=== PATIENT | female | born 1975 | race Caucasian/White ===

== ENCOUNTER 2017-12-22 06:19 | Emergency (ER) | payer SELFPAY ==
--- NOTE | 2017-12-22 07:46 | ER Document Report ---
ED ENT - General Chief Complaint: Ear Pain Stated Complaint: EAR PROBLEM Time Seen by Provider: 12/22/17 06:59 Mode of Arrival: Ambulatory Information source: Patient Notes: Patient is a 42-year-old female who presents to the ER today for left ear "feeling of being muffled." Patient denies any pain to the ear, injury to the ear. She denies any runny nose, sneezing, coughing or other sick symptoms, fever or chills. Patient states she woke up like this this morning. She has seen no drainage from the ear nor she tried anything [id number]. - Related Data Allergies/Adverse Reactions: No Known Allergies Allergy (Unverified 12/22/17 06:22) Past Medical History - General Information source: Patient - Social History Smoking Status: Never Smoker Chew tobacco use (# tins/day): No Frequency of alcohol use: Rare Drug Abuse: None Family History: Reviewed & Not Pertinent Patient has suicidal ideation: No Patient has homicidal ideation: No - Past Medical History Cardiac Medical History: Reports: Hx Hypertension - former Renal/ Medical History: Denies: Hx Peritoneal Dialysis Past Surgical History: Reports: Hx Cholecystectomy Review of Systems - Review of Systems Constitutional: No symptoms reported EENT: See HPI Cardiovascular: No symptoms reported Respiratory: No symptoms reported Gastrointestinal: No symptoms reported Genitourinary: No symptoms reported Female Genitourinary: No symptoms reported Musculoskeletal: No symptoms reported Skin: No symptoms reported Hematologic/Lymphatic: No symptoms reported Neurological/Psychological: No symptoms reported Physical Exam - Vital signs Vitals: Temp Pulse Resp BP Pulse Ox 98.4 F 70 16 120/79 98 12/22/17 06:24 12/22/17 06:24 12/22/17 06:24 12/22/17 06:24 12/22/17 06:24 - Notes Notes: PHYSICAL EXAMINATION: GENERAL: Well-appearing and in no acute distress. HEAD: Atraumatic, normocephalic. EYES: Pupils equal round and reactive to light, extraocular movements intact, sclera anicteric, conjunctiva are normal. ENT: Left ear canal with wax completely obscuring TM, right ear canal without erythema or foreign body, right TM pearly palacios with good bony landmarks, nares patent, oropharynx clear without exudates. Moist mucous membranes. NECK: Normal range of motion, supple without lymphadenopathy LUNGS: CTAB and equal. No wheezes rales or rhonchi. HEART: Regular rate and rhythm without murmurs EXTREMITIES: Normal range of motion, no pitting edema. No cyanosis. NEUROLOGICAL: Cranial nerves grossly intact. Normal sensory/motor exams. PSYCH: Normal mood, normal affect. SKIN: Warm, Dry, normal turgor, no rashes or lesions noted Course - Re-evaluation Re-evalutation: 12/22/17 08:01 Left ear was irrigated successfully, on reexamination TM pearly [place] with good cone of light and bony landmarks, no wax in ear canal, no signs of infection, patient feels better. - Vital Signs Vital signs: Temp Pulse Resp BP Pulse Ox 98.4 F 70 16 120/79 98 12/22/17 06:24 12/22/17 06:24 12/22/17 06:24 12/22/17 06:24 12/22/17 06:24 Discharge - Discharge Clinical Impression: Impacted cerumen of left ear Condition: Stable Disposition: HOME, SELF-CARE Additional Instructions: Return immediately for any new or worsening symptoms. Follow up with primary care provider, call tomorrow to make followup appointment. In case of ear wax buildup again, you can use Debrox eardrops [id number].
[2017-12-22 08:20] VITALS: BP 110/75
== END 2017-12-22 08:16 | disposition home or self-care (01) ==
LOC: ER 06:19
DX: H61.22 Impacted cerumen, left ear (principal); I10 Essential (primary) hypertension
CPT/HCPCS: 99282

== ENCOUNTER 2018-01-10 19:51 | Emergency (ER) | payer MEDICAID ==
[2018-01-10 20:51] LABS: ABSOLUTE BASOPHILS # (AUTO) 0.1 10^3/uL (0.0-0.2); ABSOLUTE EOSINOPHILS # (AUTO) 0.2 10^3/uL (0.0-0.6); ABSOLUTE LYMPHOCYTES (AUTO) 3.7 10^3/uL (0.5-4.7); ABSOLUTE MONOCYTES (AUTO) 0.7 10^3/uL (0.1-1.4); ABSOLUTE NEUT (AUTO) 4.9 10^3/uL (1.7-8.2); BASOPHILS % (AUTO) 0.6 % (0-2); EOSINOPHILS % (AUTO) 1.7 % (0-6); HEMATOCRIT 40.8 % (36.0-47.0); LYMPHOCYTES % (AUTO) 38.9 % (13-45); MEAN CORPUSCULAR HEMOGLOBIN 32.3 pg (27.0-33.4); MEAN CORPUSCULAR HGB CONC 34.3 g/dL (32.0-36.0); MEAN CORPUSCULAR VOLUME 94 fl (80-97); MONOCYTES % (AUTO) 7.6 % (3-13); PLATELET COUNT 281 10^3/uL (150-450); RED BLOOD COUNT 4.34 10^6/uL (3.72-5.28); RED CELL DISTRIBUTION WIDTH 13.6 % (11.5-14.0); SEGMENTED NEUTROPHILS % (AUTO) 51.2 % (42-78); TOTAL CELLS COUNTED % (AUTO) 100 %; WHITE BLOOD COUNT 9.6 10^3/uL (4.0-10.5)
--- NOTE | 2018-01-10 20:58 | ER Document Report ---
ED General - General Chief Complaint: OB Problem (<20wks) Stated Complaint: ABDOMINAL PAIN Time Seen by Provider: 01/10/18 20:26 Notes: Patient is a 42-year-old at uncertain gestational age by LMP who presents with concerns of diffuse lower abdominal cramping and discomfort that started over the past 24 hours. She states that she has had a positive test at home and confirmed at the health department. She denies any associated vaginal bleeding or discharge. She describes the pain as a cramping, aching, throbbing pain to her lower abdomen. And nothing improves or worsens this pain. She is uncertain if she had similar pains during her previous many years ago. She has not established formal care for this . She denies any fever or constitutional symptoms. TRAVEL OUTSIDE OF THE [place] IN LAST 30 DAYS: No - Related Data Allergies/Adverse Reactions: No Known Allergies Allergy (Verified 01/10/18 19:52) Past Medical History - General Information source: Patient - Social History Smoking Status: Never Smoker Frequency of alcohol use: None Drug Abuse: None Lives with: Family Family History: Reviewed & Not Pertinent - Past Medical History Cardiac Medical History: Reports: Hx Hypertension - former Renal/ Medical History: Denies: Hx Peritoneal Dialysis Past Surgical History: Reports: Hx Cholecystectomy Review of Systems - Review of Systems Notes: Constitutional: Negative for fever. HENT: Negative for sore throat. Eyes: Negative for visual changes. Cardiovascular: Negative for chest pain. Respiratory: Negative for shortness of breath. Gastrointestinal: Positive for lower abdominal pain Genitourinary: Negative for dysuria. Musculoskeletal: Negative for back pain. Skin: Negative for rash. Neurological: Negative for headaches, weakness or numbness. 10 point ROS negative except as marked above and in HPI. Physical Exam - Vital signs Vitals: Temp Pulse Resp BP Pulse Ox 99.0 F 76 16 110/69 96 01/10/18 20:01 01/10/18 20:01 01/10/18 20:01 01/10/18 20:01 01/10/18 20:01 Interpretation: Normal Notes: PHYSICAL EXAMINATION: GENERAL: Well-appearing, well-nourished and in no acute distress. HEAD: Atraumatic, normocephalic. EYES: Pupils equal round and reactive to light, extraocular movements intact, sclera anicteric, conjunctiva are normal. ENT: nares patent, oropharynx clear without exudates. Moist mucous membranes. NECK: Normal range of motion, supple without lymphadenopathy LUNGS: Breath sounds clear to auscultation bilaterally and equal. No wheezes rales or rhonchi. HEART: Regular rate and rhythm without murmurs ABDOMEN: Soft, mild diffuse lower abdominal discomfort but no focal areas of tenderness, normoactive bowel sounds. No guarding, no rebound. No masses appreciated. EXTREMITIES: Normal range of motion, no pitting or edema. No cyanosis. NEUROLOGICAL: No focal neurological deficits. Moves all extremities spontaneously and on command. PSYCH: Normal mood, normal affect. SKIN: Warm, Dry, normal turgor, no rashes or lesions noted. Course - Re-evaluation Re-evalutation: 01/10/18 20:58 Patient is currently and presenting with lower abdominal pain. No vaginal bleeding or discharge. Formal ultrasound shows a viable intrauterine , appropriate cardiac activity and active movement. Patient denies any dysuria and urinalysis is not consistent with an acute urinary tract infection. The patient does not have any focal right lower quadrant tenderness, rebound or guarding to suggest acute appendicitis. No right upper quadrant tenderness to suggest cholestasis of or an acute cholecystitis. Patient has tolerated oral intake here in the emergency department without difficulty. Vitals are within normal limits. At this time will discharge with return precautions and follow-up recommendations. Verbal discharge instructions given a the bedside and opportunity for questions given. Medication warnings reviewed. Patient is in agreement with this plan and has verbalized understanding of return precautions and the need for primary care follow-up in the next 24-72 hours. - Vital Signs Vital signs: Temp Pulse Resp BP Pulse Ox 99.0 F 76 16 110/69 96 01/10/18 20:01 01/10/18 20:01 01/10/18 20:01 01/10/18 20:01 01/10/18 20:01 - Laboratory Result Diagrams: 01/10/18 20:30 01/10/18 20:30 Laboratory results interpreted by me: 01/10/18 01/10/18 01/10/18 20:30 20:30 20:30 Albumin 3.4 L Beta HCG, Quant 12917.00 H Ur Leukocyte Esterase TRACE H - Diagnostic Test Radiology reviewed: Reports reviewed Discharge - Discharge Clinical Impression: related abdominal pain of lower quadrant, antepartum Condition: Good Disposition: HOME, SELF-CARE Additional Instructions: You were seen for abdominal pain during . Your ultrasound and labs are normal today. The exact cause your pain is uncertain but is likely related to your developing baby. Please follow-up with your TECHNICAL RESEARCH SCIENTIST in the next 24-48 hours. Return to the emergency department immediately if you have worsening of your pain, have persistent vomiting, develop a fever of greater than 100.4F, begin to have vaginal bleeding, or any other symptoms that are worrisome to you. Referrals: CONY BECK MD [Primary Care Provider] - Follow up as needed
[2018-01-10 21:11] LABS: ALANINE AMINOTRANSFERASE 30 U/L (9-52); ALBUMIN 3.4 g/dL (3.5-5.0); ALKALINE PHOSPHATASE 46 U/L (38-126); ANION GAP 10 (5-19); APPEARANCE,URINE SLIGHTLY-CLOUDY; ASPARTATE AMINO TRANSFERASE 20 U/L (14-36); BILIRUBIN,DIRECT 0.2 mg/dL (0.0-0.4); BILIRUBIN,TOTAL 0.2 mg/dL (0.2-1.3); BILIRUBIN,URINE NEGATIVE (NEGATIVE); BLOOD UREA NITROGEN 17 mg/dL (7-20); CALCIUM 9.3 mg/dL (8.4-10.2); CARBON DIOXIDE 27 mmol/L (22-30); CHLORIDE 105 mmol/L (98-107); COLOR,URINE YELLOW; GLUCOSE 101 mg/dL (75-110); GLUCOSE, URINE NEGATIVE (NEGATIVE); KETONES,URINE NEGATIVE (NEGATIVE); LEUKOCYTE ESTERASE,URINE TRACE (NEGATIVE); NITRITE,URINE NEGATIVE (NEGATIVE); POTASSIUM 4.5 mmol/L (3.6-5.0); PROTEIN,URINE NEGATIVE (NEGATIVE); SODIUM 141.5 mmol/L (137-145); TOTAL PROTEIN 6.8 g/dL (6.3-8.2); URINE SPECIFIC GRAVITY 1.021; UROBILINOGEN,URINE NEGATIVE mg/dL (<2.0)
--- NOTE | 2018-01-10 21:43 | RADIOLOGY REPORT (SQ) ---
EXAM DESCRIPTION: U/S OB TRANSVAGINAL W/O DOP COMPLETED DATE/TIME: 01/10/2018 9:31 pm REASON FOR STUDY: lower abdominal pain, preg COMPARISON: None. TECHNIQUE: Transvaginal static and realtime grayscale images acquired of the pelvis. Additional fatmata cted spectral and color Doppler images recorded. All images stored on PACs. bHCG: Pending. CLINICAL DATES: 15 week 5 day. LIMITATIONS: None. FINDINGS: FETUS: Living intrauterine . ULTRASOUND EGA: 7 week 5 day. ULTRASOUND ARUN: 08/24/2018. CRL: 1.43 cm. FHR: 169 beats per minute. SUBCHORIONIC BLEED: No. SIZE OF BLEED: Not applicable. UTERUS: 2.3 cm fibroid. CERVICAL LENGTH: 2.4 cm. Closed. RIGHT ADNEXA: Ovary not identified. No adnexal free fluid. No adnexal masses. LEFT ADNEXA: Ovary not identified. No adnexal free fluid. No adnexal masses. FREE FLUID: None. OTHER: No other significant finding. IMPRESSION: LIVING INTRAUTERINE . EGA 7 WEEK 5 DAY. Trimester of : First - 0 to 13 weeks. TECHNICAL DOCUMENTATION: JOB ID: [id number] [employer]- All Rights Reserved rev-12/31 Reading location - IP/workstation name: [email or web address]
[2018-01-10 23:22] VITALS: BP 122/80
== END 2018-01-10 23:16 | disposition home or self-care (01) ==
LOC: ER 19:51
DX: O26.891 Other specified pregnancy related conditions, first trimester (principal); R10.30 Lower abdominal pain, unspecified; O16.1 Unspecified maternal hypertension, first trimester; Z3A.01 Less than 8 weeks gestation of pregnancy
CPT/HCPCS: 36415; 76817; 80053; 81001; 84702; 85025; 99284

== ENCOUNTER 2018-06-17 19:50 | Outpatient (CLI) | payer MEDICAID ==
[2018-06-17 20:23] LABS: APPEARANCE,URINE CLOUDY; BILIRUBIN,URINE NEGATIVE (NEGATIVE); COLOR,URINE YELLOW; GLUCOSE, URINE NEGATIVE (NEGATIVE); KETONES,URINE NEGATIVE (NEGATIVE); LEUKOCYTE ESTERASE,URINE LARGE (NEGATIVE); NITRITE,URINE NEGATIVE (NEGATIVE); PROTEIN,URINE NEGATIVE (NEGATIVE); URINE SPECIFIC GRAVITY 1.017; UROBILINOGEN,URINE NEGATIVE mg/dL (<2.0)
[2018-06-17 20:37] LABS: URINE AMPHETAMINES SCREEN NEGATIVE; URINE BARBITURATES SCREEN NEGATIVE; URINE BENZODIAZEPINES SCREEN NEGATIVE; URINE COCAINE SCREEN NEGATIVE; URINE MARIJUANA (THC) SCREEN NEGATIVE; URINE METHADONE SCREEN NEGATIVE; URINE PHENCYCLIDINE SCREEN NEGATIVE
[2018-06-17] MEDS ORDERED: RINGERS SOLUTION,LACTATED 1,000 ML IV PRN (20:55)
[2018-06-17] MEDS ORDERED: CEFAZOLIN 1 GM/D5W RTU 1 GM/50 ML RTUPB IV ONE ×2 (20:57→21:06)
== END 2018-06-17 22:55 | disposition home or self-care (01) ==
LOC: LC 19:50
PROVIDERS: ATTEND Obstetrics & Gynecology
PROC: 4A1HXCZ Monitoring of Products of Conception, Cardiac Rate, External Approach (ICD-10-PCS; principal; 2018-06-17)
DX: O23.43 Unspecified infection of urinary tract in pregnancy, third trimester (principal); O09.523 Supervision of elderly multigravida, third trimester; Z3A.30 30 weeks gestation of pregnancy
CPT/HCPCS: 59899; 87086; 81001; 80307; J0690

== ENCOUNTER 2018-07-14 16:04 | Outpatient (CLI) | payer MEDICAID ==
--- NOTE | 2018-07-14 16:51 | Non Stress Test Report ---
Non Stress Test Datetime Report Generated by CPN: 07/14/2018 16:50 DEMOGRAPHIC Test Number: 1 EGA NST: 34.1 EGA NST: 30.2 INDICATION Indication for Study: Ordered by Provider; Other Indication for Study: Ordered by Provider Indication for Study (NST) Other: AMA VITAL SIGNS Temperature - NST: 97.9 Temperature - NST: 99.3 Pulse - NST: 99 Pulse - NST: 98 RESP - NST: 18 RESP - NST: 16 NBPSYS NST: 105 NBPSYS NST: 130 NBPDIA NST: 65 NBPDIA NST: 66 MONITORING Monitor Explained: Monitor Explained; Test Explained; Other Monitor Explained: Monitor Explained; Test Explained; Patient Verbalized Understanding Time on Monitor: 07/14/2018 16:17 Time on Monitor: 06/17/2018 20:49 Time off Monitor: 07/14/2018 16:44 Time off Monitor: 06/17/2018 22:10 NST Duration: 27 NST Duration: 81 NST INTERVENTIONS NST Interventions: None NST Interventions: PO Hydration; IV Fluids Physician Notified NST: A Soler CNM BABY A: [id number] BABY A Movement : Present Movement : Present Contraction Frequency : denies Contraction Frequency : irritability FHR Baseline : 140 FHR Baseline : 145 Accelerations : 15X15 Accelerations : 15X15 Decelerations : None Decelerations : None Variability : Moderate 6-25bpm Variability : Moderate 6-25bpm NST Review: Meets Criteria for Reactive NST NST Review and Verified By : YAYO PoeT Results: Reactive NST Results: Reactive NST REPORT Report Trigger: Send Report
== END 2018-07-14 16:56 | disposition home or self-care (01) ==
LOC: LC 16:04
PROVIDERS: ATTEND Obstetrics & Gynecology
PROC: 4A1HXCZ Monitoring of Products of Conception, Cardiac Rate, External Approach (ICD-10-PCS; principal; 2018-07-14)
DX: Z34.93 Encounter for supervision of normal pregnancy, unspecified, third trimester (principal)
CPT/HCPCS: 59025

== ENCOUNTER 2018-07-18 10:18 | Outpatient (CLI) | payer MEDICAID ==
--- NOTE | 2018-07-18 11:13 | Non Stress Test Report ---
Non Stress Test Datetime Report Generated by CPN: 07/18/2018 11:13 DEMOGRAPHIC EGA NST: 34.5 INDICATION Indication for Study: Ordered by Provider; Other Indication for Study (NST) Other: AMA VITAL SIGNS Temperature - NST: 98.3 Pulse - NST: 100 RESP - NST: 16 NBPSYS NST: 114 NBPDIA NST: 72 MONITORING Monitor Explained: Monitor Explained; Test Explained; Patient Verbalized Understanding Time on Monitor: 07/18/2018 10:37 Time off Monitor: 07/18/2018 11:02 NST Duration: 25 NST INTERVENTIONS NST Interventions: PO Hydration; Reposition Patient Physician Notified NST: J.Ledesma, CNM BABY A: [id number] BABY A Movement : Present Contraction Frequency : 0 FHR Baseline : 140 Accelerations : 15X15 Decelerations : None Variability : Moderate 6-25bpm NST Review: Meets Criteria for Reactive NST NST Review and Verified By : SOILA KINNEY RN NST Results: Reactive NST REPORT Report Trigger: Send Report
== END 2018-07-18 11:04 | disposition home or self-care (01) ==
LOC: LC 10:18
PROVIDERS: ATTEND Obstetrics & Gynecology
PROC: 4A1HXCZ Monitoring of Products of Conception, Cardiac Rate, External Approach (ICD-10-PCS; principal; 2018-07-18)
DX: O09.523 Supervision of elderly multigravida, third trimester (principal); Z3A.34 34 weeks gestation of pregnancy
CPT/HCPCS: 59025

== ENCOUNTER 2018-08-08 08:13 | Outpatient (CLI) | payer MEDICAID ==
--- NOTE | 2018-08-08 09:00 | Non Stress Test Report ---
Non Stress Test Datetime Report Generated by CPN: 08/08/2018 09:00 DEMOGRAPHIC EGA NST: 37.5 INDICATION Indication for Study: Ordered by Provider MONITORING Monitor Explained: Monitor Explained; Test Explained Time on Monitor: 08/08/2018 08:24 Time off Monitor: 08/08/2018 08:49 NST Duration: 25 NST INTERVENTIONS NST Interventions: PO Hydration; Reposition Patient Physician Notified NST: Keith Nuñez CNM BABY A: [id number] BABY A Movement : Present Contraction Frequency : none FHR Baseline : 150 Accelerations : 15X15 Decelerations : None Variability : Moderate 6-25bpm NST Review: Meets Criteria for Reactive NST NST Review and Verified By : YAYO Pennington Results: Reactive NST REPORT Report Trigger: Send Report
== END 2018-08-08 08:54 | disposition home or self-care (01) ==
LOC: LC 08:13
PROVIDERS: ATTEND Obstetrics & Gynecology
PROC: 4A1HXCZ Monitoring of Products of Conception, Cardiac Rate, External Approach (ICD-10-PCS; principal; 2018-08-08)
DX: Z34.93 Encounter for supervision of normal pregnancy, unspecified, third trimester (principal)
CPT/HCPCS: 59025

== ENCOUNTER 2018-08-17 19:08 | Inpatient (IN) | payer MEDICAID ==
[2018-08-17 19:37] LABS: APPEARANCE,URINE CLOUDY; BILIRUBIN,URINE NEGATIVE (NEGATIVE); COLOR,URINE AMBER; GLUCOSE, URINE NEGATIVE (NEGATIVE); KETONES,URINE NEGATIVE (NEGATIVE); LEUKOCYTE ESTERASE,URINE MODERATE (NEGATIVE); NITRITE,URINE NEGATIVE (NEGATIVE); PROTEIN,URINE 30 mg/dL (NEGATIVE); URINE SPECIFIC GRAVITY 1.031
[2018-08-17 19:51] LABS: URINE AMPHETAMINES SCREEN NEGATIVE; URINE BARBITURATES SCREEN NEGATIVE; URINE BENZODIAZEPINES SCREEN NEGATIVE; URINE COCAINE SCREEN NEGATIVE; URINE MARIJUANA (THC) SCREEN NEGATIVE; URINE METHADONE SCREEN NEGATIVE; URINE PHENCYCLIDINE SCREEN NEGATIVE
[2018-08-17] MEDS ORDERED: ACETAMINOPHEN 325 MG TABLET PO PRN (22:25)
[2018-08-17] MEDS ORDERED: ZOLPIDEM TARTRATE 5 MG TABLET PO PRN (22:25)
[2018-08-17] MEDS ORDERED: MAG HYDROX/AL HYDROX/SIMETH SUSP 30 ML UDCUP PO PRN (22:25)
[2018-08-17] MEDS ORDERED: DINOPROSTONE 10 MG VAGINAL INSERT.SR PV ONE (22:25)
[2018-08-17] MEDS ORDERED: RINGERS SOLUTION,LACTATED 300 ML IV ONE (22:25)
[2018-08-17] MEDS ORDERED: OXYTOCIN/NORMAL SALINE 20 UNIT/1,000 ML RTUINJ IV PRN (22:25)
[2018-08-17] MEDS ORDERED: MISOPROSTOL 0.2 MG TABLET ONE (22:27)
[2018-08-17] MEDS ORDERED: LIDOCAINE 1% INJ-PF (10 MG/ML) 30 ML SDV ONE (22:27)
[2018-08-17] MEDS ORDERED: OXYTOCIN 10 UNIT/ML VIAL ONE (22:27)
[2018-08-17] MEDS ORDERED: OXYTOCIN/NORMAL SALINE 20 UNIT/1,000 ML RTUINJ ONE (22:27)
[2018-08-17] MEDS ORDERED: DINOPROSTONE 10 MG VAGINAL INSERT.SR ONE (22:27)
[2018-08-17] MEDS: RINGERS SOLUTION,LACTATED 1,000 ML IV PRN (22:42)
--- NOTE | 2018-08-17 22:49 | RADIOLOGY REPORT (SQ) ---
EXAM DESCRIPTION: US LIMITED COMPLETED DATE/TME: 08/17/2018 00:00 CLINICAL HISTORY: 42 years Female, position EGA 39.1 Comparison: None. TECHNIQUE/LIMITATION: Targeted OB sonogram for requested parameters only. FINDINGS: Cardiac activity: 126-bpm. KEMAR: 20.1-cm Placenta: Posterior. No evidence of abruption. No placenta previa. Presentation: Vertex IMPRESSION: Targeted OB sonogram for requested parameters
[2018-08-17 23:31] LABS: ABSOLUTE BASOPHILS # (AUTO) 0.1 10^3/uL (0.0-0.2); ABSOLUTE LYMPHOCYTES (AUTO) 2.7 10^3/uL (0.5-4.7); ABSOLUTE MONOCYTES (AUTO) 0.7 10^3/uL (0.1-1.4); ABSOLUTE NEUT (AUTO) 6.3 10^3/uL (1.7-8.2); BASOPHILS % (AUTO) 0.6 % (0-2); EOSINOPHILS % (AUTO) 0.4 % (0-6); HEMOGLOBIN 11.8 g/dL (12.0-15.5); LYMPHOCYTES % (AUTO) 27.4 % (13-45); MEAN CORPUSCULAR HEMOGLOBIN 33.4 pg (27.0-33.4); MEAN CORPUSCULAR HGB CONC 34.9 g/dL (32.0-36.0); MEAN CORPUSCULAR VOLUME 96 fl (80-97); MONOCYTES % (AUTO) 6.9 % (3-13); PLATELET COUNT 247 10^3/uL (150-450); RED BLOOD COUNT 3.54 10^6/uL (3.72-5.28); RED CELL DISTRIBUTION WIDTH 13.9 % (11.5-14.0); SEGMENTED NEUTROPHILS % (AUTO) 64.7 % (42-78); TOTAL CELLS COUNTED % (AUTO) 100 %; WHITE BLOOD COUNT 9.7 10^3/uL (4.0-10.5)
[2018-08-18] MEDS: RINGERS SOLUTION,LACTATED 1,000 ML IV PRN ×5 (01:46→22:00)
[2018-08-18] MEDS ORDERED: MISOPROSTOL 0.1 MG TABLET PV ONE (10:57)
[2018-08-18] MEDS ORDERED: MISOPROSTOL 0.1 MG TABLET PO ONE (10:57)
--- NOTE | 2018-08-18 12:00 | Admission Physical ---
Datetime Report Generated by CPN: 08/18/2018 12:00 CURRENT ADMISSION Chief Complaint: Scheduled Induction of Labor Indication for Induction: Other Indication for Induction- Other: AMA Admit Impression : Induction of Labor Admit Plan: Admit to Unit; Initiate Labor Induction Protocol ALLERGIES Medication Allergies: No Medication Allergies: No Known Allergies (08/08/2018) Latex: No Latex Allergies Food Allergies: None Environmental Allergies: Seasonal OBSTETRICAL HISTORY EDC: 08/24/2018 00:00 : 2 Para: 1 Term: 0 : 1 SAB: 0 IAB: 0 Ectopic: 0 Livin Cesareans: 0 VBACs: 0 Multiple Births: 0 Gestational Diabetes: No Rh Sensitization: No Incompetent Cervix: No DARIAN: No Infertility: Yes ART Treatment: No Uterine Anomaly: No IUGR: No Hx Previous C/S: No Macrosomia: No Hx Loss/Stillborn: No PIH: Yes Hx : No Placenta Previa/Abruption: No Depression/PP Depression: No PTL/PROM: Yes Post Hemorrhage: No (Annotations: Data stored by CPN on behalf of user) Current Procedures: Ultrasound Obstetrical History Comments: g1, , female, 34 weeks gestation, 6lb 3 oz, delivery SEE RECORDS Alcohol: No Marijuana : No Cocaine: No Other Illicit Drugs: No Cigarettes: Former Smoker. 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 Surgery: No Heart Disease: No Hosp/Surgery: Yes Autoimmune Disorder: No Anesthetic Complications: No Kidney Disease: Yes Abnormal Pap Smear: No Neuro/Epilepsy: No Psychiatric Disorders: No Other Medical Diseases: Yes Hepatitis/Liver Disease: No Significant Family History: Yes Varicosities/Phlebitis: Yes Trauma/Violence : No Thyroid Dysfunction: No Medical History Comments: obesity BMI 48.83 (lost 80lbs over the last year with diet and exercise), history of PreE, ear drum repair in left ear, gall bladder removed, childbirth x 1 INFECTIOUS HISTORY Gonorrhea: No Genital Herpes: No Chlamydia: No Tuberculosis: No Syphilis: No Hepatitis: No HIV/AIDS Exposure: No Rash or Viral Illness: No HPV: No PHYSICAL EXAM General: Normal HEENT: Normal Neurologic: Normal Thyroid: Deferred Heart: Normal Lungs: Normal Breast: Deferred Back: Normal Abdomen: Normal Genitourinary Exam: Deferred Extremities: Normal DTRs: Normal Pelvic Type: Adequate Physical Exam Comments: Gravid Vital Signs: Reviewed; Within Normal Limits MEMBRANES Membranes: Intact FETUS A EGA: 39.1 Monitoring: External US FHR- Baseline: 145 Variability: Moderate 6-25bpm Accelerations: 15X15 FHR Category: Category I Presentation: Vertex Admit Comment: Proven for 6lbs 3oz Obesity- initial BMI--48.83 Hx Pre E Unstable lie-sono on admit-vertex Positive GBS test-antibx with labor Cervidil ripening on admit Proven for 6lbs 3oz PLANS FOR LABOR AND DELIVERY Labor and Delivery: None Pain Management: None Feeding Preference: Breast Benefit of Breast Feed Discussed: Yes Circumcision: No INFORMED CONSENT Assignment: Elizabeth Khan MD Signature: with User ID: [email or web address] : with User ID: [email or web address] : I personally evaluated and examined the patient in conjunction with the MLP and agree with the assessment, treatment plan and disposition.
[2018-08-18] MEDS ORDERED: MISOPROSTOL 0.1 MG TABLET ONE (12:13)
[2018-08-18] MEDS ORDERED: CEFAZOLIN INJ 1 GM VIAL ONE ×3 (19:12→19:13)
[2018-08-18] MEDS ORDERED: CITRIC ACID/SODIUM CITRATE ORAL SOLN 15 ML UDCUP ONE ×2 (19:14→19:27)
[2018-08-18] MEDS ORDERED: EPHEDRINE SULFATE INJ 50 MG/1 ML AMPULE ONE ×3 (19:24→19:38)
[2018-08-18] MEDS ORDERED: BUPIVACAINE HCL 0.25 % INJ/PF (2.5 MG/1 ML) 30 ML VIAL ONE (19:25)
[2018-08-18] MEDS ORDERED: FENTANYL/BUPIVACAINE/NS/PF 0 MCG/0 ML RTUINJ EPI ONE (19:25)
[2018-08-18] MEDS ORDERED: BUPIVACAINE HCL 0.5 % INJ/PF 30 ML SDV ONE ×2 (19:25→19:28)
[2018-08-18] MEDS ORDERED: GLYCOPYRROLATE INJ 0.4 MG/2 ML VIAL ONE (19:27)
[2018-08-18] MEDS ORDERED: FENTANYL CITRATE INJ/PF 100 MCG/2 ML AMPUL ONE ×2 (19:27→19:37)
[2018-08-18] MEDS ORDERED: LIDOCAINE 2% INJ-PF (20 MG/ML) 10 ML AMPUL ONE (19:27)
[2018-08-18] MEDS ORDERED: KETOROLAC TROMETHAMINE INJ/PF 30 MG/1 ML SDV ONE (19:37)
[2018-08-18] MEDS ORDERED: OXYTOCIN 10 UNIT/ML VIAL ONE (19:37)
[2018-08-18] MEDS ORDERED: ACETAMINOPHEN 0 MG/0 ML RTUPB IV ONE (19:38)
[2018-08-18] MEDS ORDERED: ONDANSETRON HCL INJ/PF 4 MG/2 ML SDV ONE (19:38)
[2018-08-18] MEDS ORDERED: OXYTOCIN/NORMAL SALINE 0 UNIT/0 ML RTUINJ ONE (19:38)
[2018-08-18] MEDS ORDERED: MIDAZOLAM 2 MG/2 ML INJ ONE (19:38)
[2018-08-18] MEDS ORDERED: FENTANYL/BUPIVACAINE/NS/PF 300 MCG/150 ML RTUINJ EPI ONE (20:05)
--- NOTE | 2018-08-18 21:02 | L&D Progress Notes ---
PROGRESS NOTES Datetime Report Generated by CPN: 08/18/2018 21:02 PROGRESS NOTE Impression: Reassuring Heart Rate Procedures: Sterile Vag Exam Plan: Continue Present Management; Induction; Cervical Ripening Informed Consent Obtained: Vaginal Delivery; Induction of Labor; Risks, Benefits and Alternatives Discussed Comment: CNM notified MD that cvx was not reachable and that felt was still vertex. Upon my arrival to evaluate. US revealed baby to be transverse back down to maternal right (head on maternal right). Reviewed r/b/a to ECV versus Primary section. She desires primary section for tranverse presentation. Dr. Sargent in to place epidural. I rescanned the presentation and now baby is vertex. Cvx 2/50/-3/anterior. Offered proceeding with IOL with binder in place versus proeceeding to section for unstable lie. She desires YANI and IOL. Cooks cather placed and will begin pitocin when contractions from cytotec decrease. LAST VAGINAL EXAM-NURSING Dilitation: 2.0 Dilitation: cl Dilitation: 3.0 Dilitation: 3.0 Dilitation: 1.0 Dilitation: closed Effacement: 50 Effacement: th Effacement: 60 Effacement: 60 Effacement: 50 Effacement: thick Station: high Station: hi Station: -3 Station: -3 Station: -2 Station: high Contractions: RN at bedside adjusting toco. Contractions: No tachysystole noted, denises pain. Contractions: Denied pain Contractions: Denies pain. Contractions: Pt states she is not feeling contractions Contractions: irritability MEMBRANES Membranes: Intact FETUS A : 39.1 Presentation: Vertex SIGNATURE SIGNATURE: [id number];[id number];[id number] SIGNATURE: [id number];[id number] SIGNATURE: [id number] SIGNATURE: [id number] SIGNATURE: [id number] Signature: with User ID: [email or web address] : I personally evaluated and examined the patient in conjunction with the MLP and agree with the assessment, treatment plan and disposition.
[2018-08-18] MEDS ORDERED: PENICILLIN G-K 5 MILLION UNIT VIAL ONE (21:30)
[2018-08-19] MEDS ORDERED: PENICILLIN G-K 5 MILLION UNIT VIAL ONE ×5 (00:55→17:26)
[2018-08-19] MEDS ORDERED: LIDOCAINE 2%/EPINEPHRINE INJ 20 ML VIAL ONE (08:02)
[2018-08-19] MEDS ORDERED: SODIUM BICARBONATE 8.4% INJ 50 MEQ/50 ML DISP.SYRIN ONE (08:02)
[2018-08-19] MEDS ORDERED: FENTANYL/BUPIVACAINE/NS/PF 300 MCG/150 ML RTUINJ EPI ONE (08:41)
--- NOTE | 2018-08-19 08:46 | L&D Progress Notes ---
PROGRESS NOTES Datetime Report Generated by CPN: 08/19/2018 08:46 PROGRESS NOTE Impression: Reassuring Heart Rate Procedures: Scalp Electrode; Sterile Vag Exam Plan: Continue Present Management; Cervical Ripening; Anticipate Vaginal Delivery Informed Consent Obtained: Vaginal Delivery Vital Signs : Reviewed; Within Normal Limits Comment: sono = vtx, binder on, /vtx/-3. spoke with Dr[address] Khan, suggested AROM with FSE, FSE applied, clear fluid, head down to -1, + bloody show, BS 140 with variables, uc's q 2-3 x 60 sec, will monitor closely, pt is open to C/S if needed, family at BS VAGINAL EXAM Dilitation: 4.0 Dilitation: 4.0 Dilitation: 3.0 Effacement: 60 Effacement: 50 Effacement: 50 Station: Hi Station: high Station: high FETUS A Monitoring: External US FETUS C SIGNATURE: [id number];14,[id number];10,[id number] Assignment: Isaiah Bradshaw MD Signature: with User ID: [email or web address] : with User ID: Aury
[2018-08-19] MEDS ORDERED: NALBUPHINE HCL INJ 10 MG/1 ML AMPULE INJ ONE (11:23)
[2018-08-19] MEDS ORDERED: PROMETHAZINE HCL INJ 25 MG/1 ML VIAL IV ONE (11:23)
[2018-08-19] MEDS ORDERED: PROMETHAZINE HCL INJ 25 MG/1 ML VIAL ONE (11:34)
[2018-08-19] MEDS ORDERED: NALBUPHINE HCL INJ 10 MG/1 ML AMPULE ONE (11:35)
[2018-08-19] MEDS: RINGERS SOLUTION,LACTATED 1,000 ML IV PRN (14:43)
--- NOTE | 2018-08-19 14:55 | L&D Progress Notes ---
PROGRESS NOTES Datetime Report Generated by CPN: 08/19/2018 14:55 PROGRESS NOTE Impression: Reassuring Heart Rate Procedures: Sterile Vag Exam Plan: Induction; Anticipate Vaginal Delivery Vital Signs : Reviewed; Within Normal Limits Comment: VE /vtx/-1, irreg uc's, Cat 1 strip, variables VAGINAL EXAM Dilitation: 7.0 Dilitation: 5.0 Effacement: 90 Effacement: 60 Station: -2 Station: -2 Contractions: RN at bedside troubleshooting [place]. FETUS C SIGNATURE: [id number];14,[id number];13,[id number] Assignment: Isaiah Bradshaw MD Signature: with User ID: [email or web address] : with User ID: Aury
--- NOTE | 2018-08-19 16:48 | L&D Progress Notes ---
PROGRESS NOTES Datetime Report Generated by CPN: 08/19/2018 16:48 PROGRESS NOTE Comment: pt pushing involuntary, ant lip reduced, started pushing, asynclitic, ant lip, stop pushing, position on left side, restart pushing when ant lip resolved, variables with uc's, mod variability VAGINAL EXAM Dilitation: 9.5 Effacement: 100 Station: 0 FETUS C SIGNATURE: [id number];[id number];10,[id number] Assignment: Isaiah Bradshaw MD Signature: with User ID: Aury : with User ID: Aury
[2018-08-19] MEDS ORDERED: ACETAMINOPHEN 325 MG TABLET ONE (17:41)
[2018-08-19] MEDS ORDERED: ACETAMINOPHEN 325 MG TABLET PO ONE (18:00)
[2018-08-19] MEDS ORDERED: BENZOCAINE/MENTHOL AEROSOL SPRAY 56 ML TOP PRN (19:09)
[2018-08-19] MEDS ORDERED: ACETAMINOPHEN 650 MG SUPP.RECT PR PRN (19:09)
[2018-08-19] MEDS ORDERED: ACETAMINOPHEN WITH CODEINE #3 TABLET PO PRN (19:09)
[2018-08-19] MEDS ORDERED: PSEUDOEPHEDRINE HCL 30 MG TABLET PO PRN (19:09)
[2018-08-19] MEDS ORDERED: GLYCERIN/WITCH HAZEL LEAF 1 EACH MED..PAD TP PRN (19:09)
[2018-08-19] MEDS ORDERED: MAGNESIUM HYDROXIDE SUSP 30 ML UDCUP PO PRN (19:09)
[2018-08-19] MEDS ORDERED: PROMETHAZINE HCL 25 MG TABLET PO PRN (19:09)
[2018-08-19] MEDS ORDERED: ZOLPIDEM TARTRATE 5 MG TABLET PO PRN (19:09)
[2018-08-19] MEDS ORDERED: PROMETHAZINE HCL INJ 25 MG/1 ML VIAL IV PRN (19:09)
[2018-08-19] MEDS ORDERED: DIPH/PERTUSS(ACELL)/TETANUS VAC/PF 0.5 ML SYR (>=10YO) IM PRN (19:09)
[2018-08-19] MEDS ORDERED: DIBUCAINE 1% OINTMENT 28 GM TP PRN (19:09)
[2018-08-19] MEDS ORDERED: OXYTOCIN/NORMAL SALINE 20 UNIT/1,000 ML RTUINJ IV PRN (19:09)
[2018-08-19] MEDS ORDERED: NA PHOS,M-B/NA PHOS,DI-BA (ADULT) 133 ML ENEMA PR PRN (19:09)
[2018-08-19] MEDS ORDERED: PROMETHAZINE HCL 25 MG SUPP.RECT PR PRN (19:09)
[2018-08-19] MEDS ORDERED: DIPHENHYDRAMINE HCL 25 MG CAPSULE PO PRN (19:09)
[2018-08-19] MEDS ORDERED: MEASLES,MUMPS&RUBELLA VACC/PF 0.5 ML VIAL SUBCUT PRN (19:09)
[2018-08-19] MEDS ORDERED: BENZOCAINE/MENTHOL AEROSOL SPRAY 56 ML ONE (19:26)
[2018-08-19] MEDS ORDERED: IBUPROFEN 800 MG TABLET ONE (19:26)
--- NOTE | 2018-08-19 19:43 | Warning Signs in Babies ---
VOD Warning Signs Datetime Report Generated by [facility]: 08/19/2018 19:43 VOD#608 -Warning Signs in Babies: Viewed with Parent(s)/Family (08/19/2018 19:25:Laly Bartlett RN)
[2018-08-19] MEDS ORDERED: MISOPROSTOL 0.2 MG TABLET ONE (19:51)
--- NOTE | 2018-08-19 20:14 | Delivery Summary ---
Del Sum A-C Datetime Report Generated by CPN: 08/19/2018 20:13 DELIVERY PERSONNEL DELIVERY PERSONNEL: [id number] Delivery Doctor:: Isaiah Bradshaw MD Labor and Delivery Nurse:: Gagan Batista RNkier boiler Nurse:: RAMYA Wallace Nursery Nurse:: Dimitri Colón RN Acid Mixer/CHIEF RISK OFFICER: Jossy Hardy CST Acid Mixer/CHIEF RISK OFFICER: Bailee Hyman, GLUE MACHINE OPERATOR MATERNAL INFORMATION Delivery Anesthesia: Epidural Medications After Delivery: Pitocin Bolus-Please Comment Meds After Delivery Comment: Pitocin 20 units in 1000 ml nss open for bolus Estimated Blood Loss (ml): 250 Maternal Complications: Maternal Fever; Other Complication Details: morbid obesity, AMA, CHTN LABOR SUMMARY EDC: 08/24/2018 00:00 No. Babies in Womb: 1 Attempted: No Labor Anesthesia: Epidural LABOR INFORMATION Reason for Induction: Other Reason for Induction- Other: AMA, unstable position Onset of Labor: 08/19/2018 11:04 Complete Dilatation: 08/19/2018 17:35 Cervical Ripening Agents: Cervidil Oxytocin: Induction Group B Beta Strep: POSITIVE Antibiotics # of Doses: 6 Antibiotics Time of Last Dose: 1734 Name of Antibiotic Given: Penicillin Steroids Given: None Reason Steroids Not Administered: Not Applicable MEMBRANES Membranes Rupture Method: Artificial Rupture of Membranes: 08/19/2018 08:38 Length of Rupture (hr): 9.68 Amniotic Fluid Color: Clear Amniotic Fluid Amount: Small Amniotic Fluid Odor: Normal STAGES OF LABOR Stage 1 hr: 6 Stage 1 min: 31 Stage 2 hr: 0 Stage 2 min: 44 Stage 3 hr: 0 Stage 3 min: 6 Total Time in Labor hr: 7 Total Time in Labor min: 21 VAGINAL DELIVERY Episiotomy: None Laceration #1: Perineal Laceration Extension #1: Second Degree Laceration #2: None Laceration Extension #2: N/A Laceration #3: None Laceration Extension #3: N/A Laceration Repair: Yes Laceration Repair Note: Perineal laceration repaired in usual fashion with 3-0 chromic suture. Sponge Count Correct: Vaginal Sweep Performed Sharps Count Correct: Yes CSECTION DELIVERY Primary Indication: N/A Secondary Indication: N/A CSection Incidence: N/A Labor: N/A Elective: N/A CSection Incision: N/A BABY A INFORMATION Delivery Date/Time: 08/19/2018 18:19 Method of Delivery: Vaginal Born in Route : No : N/A Forceps: N/A Vacuum Extraction: Successful Shoulder Dystocia : Yes ASSISTED DELIVERY BABY A Indication for Assisted Delivery: mother unable to push well with variable decells Catheter Prior to Procedure: Yes Station Vacuum/Forcep Apply: +2 Vacuum Number of Pulls: 4 pull with contractions Vacuum Number of PopOffs: 2 Vacuum Maximum Pressure Obtained: 500 Reduce Pressure btwn Ctx: Yes Vacuum Band Bias Machine Operator: [place] Vacuum/Forceps Comment: vac pulls with maternal pushing. pressure off between contractions. SHOULDER DYSTOCIA BABY A Delivery of Head: 08/19/2018 18:18 Time Head to Delivery : 1.0 1st Intervention to Resolve: McRobert's Maneuver 2nd Intervention to Resolve: Carr Maneuver Verify NO Fundal Pressure: No Fundal Pressure Applied Arm Under Symphisis at Del: Left Shoulder Dystocia Comments: Shoulder dystocia relieved with Carr Screw. PRESENTATION/POSITION BABY A Presentation: Cephalic Cephalic Presentation: Vertex Vertex Position: Right Occipital Anterior Breech Presentation: N/A PLACENTA INFORMATION BABY A Placenta Delivery Time : 08/19/2018 18:25 Placenta Method of Delivery: Spontaneous Placenta Status: Delivered SCORES BABY A Heart Rate 1 min: >100 bpm Resp Effort 1 min: Slow, Irregular Reflex Irritability 1 min: Grimace Muscle Tone 1 min: Some Flexion of Extremities Color 1 min: Blue/Pale SCORE 1 MIN: 5 Heart Rate 5 min: >100 bpm Resp Effort 5 min: Slow, Irregular Reflex Irritability 5 min: Cough or Sneeze or Pulls Away Muscle Tone 5 min: Some Flexion of Extremities Color 5 min: Body [place], Extremities Blue SCORE 5 MIN: 7 INFANT INFORMATION BABY A Gestational Age at Delivery: 39.2 Gestational Status: Full Term- 39- 40.6 Weeks Infant Outcome : Liveborn Condition : Fair Infant Sex: Male IDENTIFICATION BABY A Verification Date/Time: 08/19/2018 18:34 ID Band Number: [id number] Mother's Name Verified: Yes RN Verifying : S. Camp, RN and T. Lester WEIGHT/LENGTH BABY A Birthweight (gm): 4000 Infant Weight (lb): 8 Weight (oz): 13 Length (in): 21.50 Length (cm): 54.61 CORD INFORMATION BABY A No. Cord Vessels: 3 Nuchal Cord : N/A Nuchal Cord- Other: body cord Cord Blood Taken: Yes-For Storage (Mom's Blood type +) Suction: Mouth; Nose ASSESSMENT BABY A Infant Complications: Other Infant Complications- Other: Body cord Physical Findings at Delivery: Caput Succedaneum; Bruising Infant Respirations: Grunting; Tachypnea Skin to Skin: No Skin to Skin Time (min): 0 Hotel Operation Manager/ALS Called : No Infant Care By: Mayelin Colón RN Transferred To: NICU BABY B INFORMATION : N/A SIGNATURES Signature: with User ID: [email or web address] : I personally evaluated and examined the patient in conjunction with the MLP and agree with the assessment, treatment plan and disposition.
[2018-08-20] MEDS: IBUPROFEN 800 MG TABLET PO SCH ×4 (05:07→21:41)
[2018-08-20] MEDS: FAMOTIDINE 20 MG TABLET PO SCH ×3 (05:07→21:41)
[2018-08-20] MEDS: ACETAMINOPHEN WITH CODEINE #3 TABLET PO PRN (05:10)
[2018-08-20 06:26] LABS: HEMATOCRIT 31.2 % (36.0-47.0); HEMOGLOBIN 10.8 g/dL (12.0-15.5); MEAN CORPUSCULAR HEMOGLOBIN 33.3 pg (27.0-33.4); MEAN CORPUSCULAR HGB CONC 34.6 g/dL (32.0-36.0); MEAN CORPUSCULAR VOLUME 96 fl (80-97); PLATELET COUNT 196 10^3/uL (150-450); RED BLOOD COUNT 3.24 10^6/uL (3.72-5.28); RED CELL DISTRIBUTION WIDTH 14.2 % (11.5-14.0); WHITE BLOOD COUNT 14.5 10^3/uL (4.0-10.5)
--- NOTE | 2018-08-20 10:04 | PDOC PROGRESS REPORT ---
Subjective-OB Progress Note for:: 08/20/18 Subjective: Doing well, sitting up in bed, baby in nursery getting a neuro exam, voiding, scant lochia Physical Exam (OB) Vital Signs: Temp Pulse Resp BP Pulse Ox 98.6 F 80 16 109/52 L 95 08/20/18 04:52 08/20/18 04:52 08/20/18 04:52 08/20/18 04:52 08/20/18 04:52 Intake & Output 08/19/18 08/20/18 08/21/18 06:59 06:59 06:59 Intake Total 2396 1000 Balance 2396 1000 - Lochia Lochia Amount: Small 10-25 ml Lochia Color: Rubra/Red - Abdomen Description: Soft, Round Hernia Present: No Fundal Description: Firm, Midline Fundal Height: u/u - u/2 Objective-Diagnostic Laboratory: 08/20/18 05:59 08/20/18 05:59 WBC 14.5 H RBC 3.24 L Hgb 10.8 L Hct 31.2 L MCV 96 MCH 33.3 MCHC 34.6 RDW 14.2 H Plt Count 196 Assessment and Plan(PN) - Assessment and Plan (1) Shoulder dystocia, delivered Is this a current diagnosis for this admission?: Yes (2) Maternal fever during labor, delivered Is this a current diagnosis for this admission?: Yes (3) Vacuum extractor delivery, delivered Is this a current diagnosis for this admission?: Yes (4) Morbid obesity with BMI of 45.0-49.9, adult Is this a current diagnosis for this admission?: Yes (5) Chronic hypertension in Is this a current diagnosis for this admission?: Yes (6) GBS (group B Streptococcus carrier), +RV culture, currently Is this a current diagnosis for this admission?: Yes (7) AMA (advanced maternal age) primigravida 35+ Qualifiers: Trimester: first trimester Qualified Code(s): O09.511 - Supervision of elderly primigravida, first trimester Is this a current diagnosis for this admission?: Yes - Time Spent with Patient Time with patient: Less than 15 minutes Medications reviewed and adjusted accordingly: Yes - Disposition Anticipated Discharge: Home Within: within 48 hours
[2018-08-20] MEDS: DOCUSATE SODIUM 100 MG CAPSULE PO SCH ×2 (10:18→18:09)
[2018-08-20] MEDS: ENOXAPARIN SODIUM INJ 40 MG/0.4 ML DISP.SYRIN SUBCUT SCH (10:18)
[2018-08-20] MEDS: PRENATAL VITAMIN W DHA CAPSULE PO SCH (10:18)
[2018-08-20] MEDS: SENNOSIDES/DOCUSATE 8.6-50 MG 1 EACH TABLET PO SCH (10:18)
[2018-08-20] MEDS: FERROUS SULFATE 325 MG TABLET PO SCH ×2 (10:18→18:09)
[2018-08-21] MEDS: ACETAMINOPHEN WITH CODEINE #3 TABLET PO PRN (03:21)
[2018-08-21] MEDS: IBUPROFEN 800 MG TABLET PO SCH ×2 (05:52→13:20)
[2018-08-21 08:06] VITALS: BP 125/86
[2018-08-21] MEDS: ENOXAPARIN SODIUM INJ 40 MG/0.4 ML DISP.SYRIN SUBCUT SCH (10:01)
[2018-08-21] MEDS: DOCUSATE SODIUM 100 MG CAPSULE PO SCH (10:01)
[2018-08-21] MEDS: SENNOSIDES/DOCUSATE 8.6-50 MG 1 EACH TABLET PO SCH (10:01)
[2018-08-21] MEDS: PRENATAL VITAMIN W DHA CAPSULE PO SCH (10:01)
[2018-08-21] MEDS: FERROUS SULFATE 325 MG TABLET PO SCH (10:01)
[2018-08-21] MEDS: FAMOTIDINE 20 MG TABLET PO SCH (10:04)
--- NOTE | 2018-08-21 10:38 | PDOC PROGRESS REPORT ---
Subjective-OB Progress Note for:: 08/21/18 Subjective: Doing well, OOB in room, with baby, , voiding, has help at home Physical Exam (OB) Vital Signs: Temp Pulse Resp BP Pulse Ox 98.3 F 72 18 125/86 H 98 08/21/18 10:33 08/21/18 10:33 08/21/18 10:33 08/21/18 07:19 08/21/18 10:33 Intake & Output 08/20/18 08/21/18 08/22/18 06:59 06:59 06:59 Intake Total 1000 1460 Balance 1000 1460 - Lochia Lochia Amount: Small 10-25 ml Lochia Color: Rubra/Red - Abdomen Description: Soft Hernia Present: No Fundal Description: Firm, Midline Fundal Height: u/u - u/2 Objective-Diagnostic Laboratory: 08/20/18 05:59 Assessment and Plan(PN) - Assessment and Plan (1) Shoulder dystocia, delivered Is this a current diagnosis for this admission?: Yes (2) Maternal fever during labor, delivered Is this a current diagnosis for this admission?: Yes (3) Vacuum extractor delivery, delivered Is this a current diagnosis for this admission?: Yes (4) Morbid obesity with BMI of 45.0-49.9, adult Is this a current diagnosis for this admission?: Yes (5) Chronic hypertension in Is this a current diagnosis for this admission?: Yes (6) GBS (group B Streptococcus carrier), +RV culture, currently Is this a current diagnosis for this admission?: Yes (7) AMA (advanced maternal age) primigravida 35+ Qualifiers: Trimester: first trimester Qualified Code(s): O09.511 - Supervision of elderly primigravida, first trimester Is this a current diagnosis for this admission?: Yes - Time Spent with Patient Time with patient: Less than 15 minutes Medications reviewed and adjusted accordingly: Yes - Disposition Anticipated Discharge: Home Within: within 24 hours
--- NOTE | 2018-08-21 10:41 | PDOC DISCHARGE SUMMARY ---
Final Diagnosis Discharge Date: 08/21/18 - Final Diagnosis (1) Shoulder dystocia, delivered Is this a current diagnosis for this admission?: Yes (2) Maternal fever during labor, delivered Is this a current diagnosis for this admission?: Yes (3) Vacuum extractor delivery, delivered Is this a current diagnosis for this admission?: Yes (4) Morbid obesity with BMI of 45.0-49.9, adult Is this a current diagnosis for this admission?: Yes (5) Chronic hypertension in Is this a current diagnosis for this admission?: Yes (6) GBS (group B Streptococcus carrier), +RV culture, currently Is this a current diagnosis for this admission?: Yes (7) AMA (advanced maternal age) primigravida 35+ Is this a current diagnosis for this admission?: Yes Discharge Data - Discharge Medication Home Medications: Ferrous Sulfate [Iron] 325 mg PO DAILY 06/17/18 Pnv No.95/Ferrous Fum/Folic AC [ Vitamin Tablet] 1 tab PO DAILY 06/17/18 Gestational Age: 39.2 Reason(s) for Admission: Induction of Labor, Advanced Maternal Age, Group B Strep Positive Admission Note: Unstable lie, morbid obesity Procedures: NST, Ultrasound Intrapartum Procedure(s): Vacuum Extraction Complication(s): Laceration-Perineal Laceration-Degree: 2nd - Diagnosis Test Laboratory: Temp Pulse Resp BP Pulse Ox 98.3 F 72 18 125/86 H 98 08/21/18 10:33 08/21/18 10:33 08/21/18 10:33 08/21/18 07:19 08/21/18 10:33 08/17/18 08/17/18 08/20/18 19:23 23:20 05:59 RBC 3.54 L 3.24 L Hgb 11.8 L 10.8 L Hct 34.0 L 31.2 L Urine Opiates Screen NEGATIVE - Discharge information/Instructions Discharge Activity: Activity As Tolerated, No Lifting Over 10 Pounds, No L ifting/Push/Pulling, Pelvic Rest Discharge Diet: As Tolerated, Regular Disposition: HOME, SELF-CARE Follow [facility]: [facility] in: 2, Weeks
== END 2018-08-21 17:09 | disposition home or self-care (01) | DRG 806 ==
LOC: LC 19:08 → LR 22:40 → 2S 08-19 21:25
PROVIDERS: ADMIT Obstetrics & Gynecology; ATTEND Obstetrics & Gynecology
PROC: 3E033VJ Introduction of Other Hormone into Peripheral Vein, Percutaneous Approach (ICD-10-PCS; 2018-08-17)
PROC: 3E0P7VZ Introduction of Hormone into Female Reproductive, Via Natural or Artificial Opening (ICD-10-PCS; 2018-08-17)
PROC: 0U7C7ZZ Dilation of Cervix, Via Natural or Artificial Opening (ICD-10-PCS; 2018-08-18)
PROC: 10D07Z6 Extraction of Products of Conception, Vacuum, Via Natural or Artificial Opening (ICD-10-PCS; principal; 2018-08-19)
PROC: 0KQM0ZZ Repair Perineum Muscle, Open Approach (ICD-10-PCS; 2018-08-19)
DX: O66.0 Obstructed labor due to shoulder dystocia (principal); O75.2 Pyrexia during labor, not elsewhere classified; Z37.0 Single live birth; O99.824 Streptococcus B carrier state complicating childbirth; O32.0XX0 Maternal care for unstable lie, not applicable or unspecified; O99.214 Obesity complicating childbirth; E66.9 Obesity, unspecified; E66.01 Morbid (severe) obesity due to excess calories; O16.4 Unspecified maternal hypertension, complicating childbirth; O70.1 Second degree perineal laceration during delivery; O69.89X0 Labor and delivery complicated by other cord complications, not applicable or unspecified; Z3A.39 39 weeks gestation of pregnancy
CPT/HCPCS: 36415; 76815; 80307; 81005; 85025; 85027; 86592; 86850; 86900; 86901; 94760; J0131; J0690; J1650; J1885; J2250; J2300; J2405; J2540; J2550; J2590; J3010; J3490